=== PATIENT | male | born 1965 | race Caucasian/White ===

== ENCOUNTER 2024-04-14 06:35 | Day surgery (SDC) | payer OTHER ==
[~2024-04-14] VITALS: Ht 162.6 cm; Wt 88.5 kg
[2024-04-14] MEDS ORDERED: fentaNYL citrate 0.05 MG/ML VIAL ONE (07:29)
[2024-04-14] MEDS: fentaNYL citrate 0.05 MG/ML VIAL IVP ONE (08:01)
[2024-04-14] MEDS: LIDOCAINE 2% 100 MG/5 ML UJET TP ONE (08:07)
== END 2024-04-14 09:00 | disposition home or self-care (01) ==
LOC: MDS 06:35 → MMU 06:37 → MDS 09:00
PROVIDERS: ATTEND Internal Medicine Gastroenterology
DX: K62.5 Hemorrhage of anus and rectum (principal); K64.9 Unspecified hemorrhoids; K63.5 Polyp of colon
CPT/HCPCS: 45385; J3010